=== PATIENT | female | born 1955 | race Caucasian/White ===

== ENCOUNTER 2016-09-01 16:02 | Emergency (ER) | payer BC ==
[2016-09-01 16:03] VITALS: BMI 32.8
[2016-09-01 16:54] VITALS: BP 151/81; PULSE 76; RESP 20; TEMP 98.6; O2SAT 99
--- NOTE | 2016-09-01 16:56 | ED PDOC ---
HPI: Female Pain Time Seen by Provider: 09/01/16 16:30 Chief Complaint (Nursing): Back Pain Chief Complaint (Provider): back pain History Per: Patient History/Exam Limitations: no limitations Current Symptoms Are (Timing): Still Present Additional Complaint(s): Awilda Lubin is a 61 year old female, with an extensive previous medical history including chronic back pain, who presents to the ED with complaints of lower back pain. Pt reports associated symptoms of tingling down both legs, frequency in urination, urine trickling, urgency in urination and dysuria. Pt denies any hematuria, fever, chills or incontinency. Pt reports to following with pain management who prescribed dilaudid daily and epidural every six month. Pt reports to taking her normal dose of dilaudid prior to arrival. PMD: Cuba Lua MD Abnormal Vaginal Bleeding: No Past Medical History Reviewed: Historical Data, Nursing Documentation, Vital Signs Vital Signs: Last Vital Signs Temp 98.6 F 09/01/16 16:23 Pulse 76 09/01/16 16:23 Resp 20 09/01/16 16:23 BP 151/81 H 09/01/16 16:23 Pulse Ox 99 09/01/16 16:23 - Medical History PMH: Anemia, Anxiety, Arthritis, Asthma, Back Problems, Bronchitis, COPD, Diabetes, Emphysema, Gastritis, Gall Bladder Disease, GERD, Hiatal Hernia, HTN, Hypercholesterolemia, Hyperlipidemia, Pneumonia, Sleep Apnea Denies: Alzheimer's Disease, Atrial Fibrillation, Bipolar Disorder, CAD, Cardia Arrhythmia, CHF, Crohn's Disease, Dementia (pt denies), Depression, Diverticulitis, Fractures, HIV, Hyperthyroidism, Hypothyroidism, Kidney Stones, Migraine, Mitral Valve Prolapse, Multiple Sclerosis, Osteoporosis, Pancreatitis , Paranoia, Parkinson's Disease, Peripheral Edema, Post Traumatic Stress Disorder, Pulmonary Embolism, Chronic Kidney Disease, Rheumatoid Arthritis, Schizophrenia, Seizures, Sickle Cell Disease, Sexually Transmitted Disease, TIA - Surgical History Surgical History: Cholecystectomy Denies: Appendectomy, CABG, Carotid Endarterectomy, Coronary Stent, Pacemaker , Tonsillectomy - Family History Family History: States: Unknown Family Hx - Immunization History Hx Tetanus Toxoid Vaccination: No Hx Influenza Vaccination: No Hx Pneumococcal Vaccination: No - Home Medications Home Medications: Ambulatory Orders Medication Instructions Recorded Insulin Detemir [Levemir] 34 units SC HS #0 vial 04/20/15 Acetaminophen/Butalbital/Caf 1 tab PO BID PRN 05/18/15 [Fioricet] Enalapril Maleate 20 mg PO BID 05/18/15 Zolpidem [Ambien] 10 mg PO HS 05/18/15 Esomeprazole Magnesium [Nexium] 40 mg PO DAILY 06/28/15 HYDROmorphone [Dilaudid] 4 mg PO BID PRN 07/26/15 Insulin Lispro [Humalog] 15 unit SC TID 07/26/15 Metoclopramide [Reglan] 10 mg PO TID PRN 07/26/15 Gabapentin [Neurontin] 100 mg PO PRN PRN 08/10/15 Pioglitazone HCl [Actos] 30 mg PO DAILY 08/10/15 Ondansetron ODT [Zofran ODT] 4 mg PO Q8 #10 odt 08/23/15 Nitrofurantoin Macrocrystals 100 mg PO BID #14 cap 02/21/16 [Macrobid] - Allergies Allergies/Adverse Reactions: Allergies Allergy/AdvReac Type Severity Reaction Status Date / Time codeine Allergy ITCHING Verified 02/21/16 09:17 narcotics Allergy ITCHING Uncoded 02/04/16 21:08 Review of Systems ROS Statement: Except As Marked, All Systems Reviewed And Found Negative Constitutional: Negative for: Fever, Chills Genitourinary Female: Positive for: Dysuria, Frequency. Negative for: Incontinence, Hematuria Musculoskeletal: Positive for: Back Pain Neurological: Positive for: Other (tingling down both legs) Physical Exam - Reviewed Nursing Documentation Reviewed: Yes Vital Signs Reviewed: Yes - Physical Exam Appears: Positive for: Well, Non-toxic, No Acute Distress Head Exam: Positive for: ATRAUMATIC, NORMAL INSPECTION, NORMOCEPHALIC Skin: Positive for: Normal Color, Warm, Dry Cardiovascular/Chest: Positive for: Regular Rate, Rhythm Respiratory: Positive for: CNT, Normal Breath Sounds Gastrointestinal/Abdominal: Positive for: Bowel Sounds, Soft, Tenderness (mild suprapubic tenderness) Extremity: Positive for: Normal ROM, Capillary Refill (< 2 seconds). Negative for: Calf Tenderness Neurologic/Psych: Positive for: Alert, Oriented - Laboratory Results Urine dip results: Negative for: Leukocyte Esterase, Blood, Nitrate, Ketones, Glucose, Bilirubin, Protein - ECG O2 Sat by Pulse Oximetry: 99 (RA) Pulse Ox Interpretation: Normal Medical Decision Making Medical Decision Making: Initial Impression: UTI Initial Plan: * urine dipstick * reevaluation Pt refused non-steroidal medications at this time. Pt with normal UDIP-pt again offered pain control with NSAID, but declined. pt opted to go home to take her dilauid PO Scribe Attestation: Documented by Matilde Belle, acting as a scribe for jayson. Provider Scribe Attestation: All medical record entries made by the Scribe were at my direction and personally dictated by me. I have reviewed the chart and agree that the record accurately reflects my personal performance of the history, physical exam, medical decision making, and the department course for this patient. I have also personally directed, reviewed, and agree with the discharge instructions and disposition Disposition - Clinical Impression Clinical Impression: Back disorder - Patient ED Disposition Is Patient to be Admitted: No Counseled Patient/Family Regarding: Need For Followup - Disposition Disposition: Routine/Home Disposition Time: 17:30 Condition: STABLE Instructions: Back Pain (ED)
== END 2016-09-01 18:42 | disposition home or self-care (01) ==
LOC: H.ER 16:02
DX: M54.5 Low back pain (principal)

== ENCOUNTER 2016-09-26 14:45 | Emergency (ER) | payer BC ==
[2016-09-26 14:46] VITALS: BMI 32.8
[2016-09-26 15:03] VITALS: BP 116/82; PULSE 100; RESP 16; TEMP 98.1; O2SAT 100
[2016-09-26] MEDS ORDERED: DiphenhydrAMINE 50 mg/ml Inj IVP STA (15:22)
[2016-09-26] MEDS ORDERED: Sodium Chloride 0.9% 500 ML IV STA (15:22)
--- NOTE | 2016-09-26 15:23 | ED PDOC ---
HPI: Abdomen Time Seen by Provider: 09/26/16 15:04 Chief Complaint (Nursing): Dizziness/Lightheaded Chief Complaint (Provider): Abdominal pain History Per: Patient History/Exam Limitations: no limitations Onset/Duration Of Symptoms: Days (3x) Current Symptoms Are (Timing): Still Present Severity: Moderate Location Of Pain/Discomfort: Periumbilical Associated Symptoms: Chills, Nausea, Vomiting, Back Pain (chronic), Urinary Symptoms (frequency). denies: Diarrhea Exacerbating Factors: Movement Additional Complaint(s): 61 year old female patient with a pertinent medical history of HTN, diabetes, and chronic back pain presents to the ED with complaints of abdominal pain that started 3x days ago right after she got an epidural for her back. She reports that she has gotten an epidural at least 6x times prior to this time because it is her pain management for her chronic back pain. She has associated symptoms of lightheadedness, dizziness, nausea, vomiting (4 episodes today, non bloody), frequency and urgency, headache, and chills. She denies having diarrhea, hematuria, and dysuria. Of note: accucheck is 370 upon arrival to ED. PMD: Brenton Dorado MD Pain management MD: Brenton Freeman MD Past Medical History Reviewed: Historical Data, Nursing Documentation, Vital Signs Vital Signs: Last Vital Signs Temp 98.1 F 09/26/16 15:00 Pulse 100 H 09/26/16 15:00 Resp 16 09/26/16 15:00 BP 116/82 09/26/16 15:00 Pulse Ox 100 09/26/16 18:38 - Medical History PMH: Anemia, Anxiety, Arthritis, Asthma, Back Problems, Bronchitis, COPD, Diabetes, Emphysema, Gastritis, Gall Bladder Disease, GERD, Hiatal Hernia, HTN, Hypercholesterolemia, Hyperlipidemia, Pneumonia, Sleep Apnea Denies: Alzheimer's Disease, Atrial Fibrillation, Bipolar Disorder, CAD, Cardia Arrhythmia, CHF, Crohn's Disease, Dementia (pt denies), Depression, Diverticulitis, Fractures, HIV, Hyperthyroidism, Hypothyroidism, Kidney Stones, Migraine, Mitral Valve Prolapse, Multiple Sclerosis, Osteoporosis, Pancreatitis , Paranoia, Parkinson's Disease, Peripheral Edema, Post Traumatic Stress Disorder, Pulmonary Embolism, Chronic Kidney Disease, Rheumatoid Arthritis, Schizophrenia, Seizures, Sickle Cell Disease, Sexually Transmitted Disease, TIA - Surgical History Surgical History: Cholecystectomy Denies: Appendectomy, CABG, Carotid Endarterectomy, Coronary Stent, Pacemaker , Tonsillectomy - Family History Family History: States: Diabetes (brother), Hypertension (brother) - Social History Alcohol: None Drugs: Denies - Immunization History Hx Tetanus Toxoid Vaccination: No Hx Influenza Vaccination: No Hx Pneumococcal Vaccination: No - Home Medications Home Medications: Ambulatory Orders Medication Instructions Recorded Insulin Detemir [Levemir] 34 units SC HS #0 vial 04/20/15 Acetaminophen/Butalbital/Caf 1 tab PO BID PRN 05/18/15 [Fioricet] Enalapril Maleate 20 mg PO BID 05/18/15 Zolpidem [Ambien] 10 mg PO HS 05/18/15 Esomeprazole Magnesium [Nexium] 40 mg PO DAILY 06/28/15 HYDROmorphone [Dilaudid] 4 mg PO BID PRN 07/26/15 Insulin Lispro [Humalog] 15 unit SC TID 07/26/15 Metoclopramide [Reglan] 10 mg PO TID PRN 07/26/15 Gabapentin [Neurontin] 100 mg PO PRN PRN 08/10/15 Pioglitazone HCl [Actos] 30 mg PO DAILY 08/10/15 Ondansetron ODT [Zofran ODT] 4 mg PO Q8 #10 odt 08/23/15 Dicyclomine [Bentyl] 20 mg PO BID PRN #30 tab 09/26/16 Ondansetron ODT [Zofran ODT] 1 odt PO Q6 PRN #30 odt 09/26/16 - Allergies Allergies/Adverse Reactions: Allergies Allergy/AdvReac Type Severity Reaction Status Date / Time codeine Allergy ITCHING Verified 09/26/16 15:00 Review of Systems ROS Statement: Except As Marked, All Systems Reviewed And Found Negative Constitutional: Positive for: Chills Cardiovascular: Positive for: Light Headedness Gastrointestinal: Positive for: Nausea, Vomiting, Abdominal Pain. Negative for : Diarrhea Genitourinary Female: Positive for: Frequency. Negative for: Dysuria, Hematuria Musculoskeletal: Positive for: Back Pain (chronic) Neurological: Positive for: Headache, Dizziness Physical Exam - Reviewed Nursing Documentation Reviewed: Yes Vital Signs Reviewed: Yes - Physical Exam Appears: Positive for: Well, Non-toxic (patient has central obesity), In Acute Distress (moderate painful distress) Head Exam: Positive for: ATRAUMATIC, NORMOCEPHALIC Skin: Positive for: Normal Color, Warm, Dry Eye Exam: Positive for: Normal appearance ENT: Positive for: Normal ENT Inspection, Other (moist mucous membranes) Cardiovascular/Chest: Positive for: Regular Rate, Rhythm, Chest Non Tender Respiratory: Positive for: Normal Breath Sounds. Negative for: Respiratory Distress Gastrointestinal/Abdominal: Positive for: Soft, Tenderness (right upper quadrant tenderness to palpation), Other (abdomen is protuberant). Negative for : Mass, Distended, Guarding, Rebound Back: Negative for: Other (no erythema or henley on midline lower back, no swelling) Neurologic/Psych: Positive for: Alert, Oriented (3x) - Laboratory Results Result Diagrams: 09/26/16 15:31 09/26/16 15:31 - ECG O2 Sat by Pulse Oximetry: 100 (RA) Pulse Ox Interpretation: Normal Medical Decision Making Medical Decision Makin:04 Initial impression: 61 year old female with abdominal pain. Initial plan: * EKG * ABG shock panel * CMP * lipase * LDH * udip * CBC * PTT * prothrombin time * benadryl 25mg IBP * IV NS 500ml IV 500mls/hr * morphine 4mg IVP * phenergan 25mg IV * protonix 40mg IVP * blood culture * urine culture * urinalysis * reevaluation 15:50 ABG demonstrates a lactate level of 2.7, glucose level of 502, pH of 7.43. 16:45 Upon reevaluation, patient states that she does not feel zany better (after morphine). Her pain level is still severe. IV Dilaudid is ordered. Discussed case with patient's pain management physician Brenton Freeman MD and notified him that his patient is receiving medication in the ED for abdominal pain. He states that she may not see the effects of the epidural for up to a week after administration. Accession No. : [id number] Patient Name / ID : COBY [id number] / [id number] Exam Date : 09/26/2016 17:39:34 ( Approved ) Study Comment : Sex / Age : F / 61Y Creator : Isaura Gonzalez MD Dictator : Isaura Gonzalez MD Control Room Agent : Cyber Defense Analyst : Isaura Gonzalez MD Approver2 : Report Date : 09/26/2016 18:29:18 My Comment : PROCEDURE: CT Abdomen and Pelvis without Oral or IV contrast. HISTORY: abd pain COMPARISON: CT abdomen and pelvis with contrast performed 02/21/16 TECHNIQUE: Contiguous axial images of the abdomen and pelvis. No oral or IV contrast administered. Coronal and Sagittal reformats generated and reviewed. Radiation dose: Total exam DLP = 1023.73 mGy-cm. This CT exam was performed using one or more of the following dose reduction techniques: Automated exposure control, adjustment of the mA and/or kV according to patient size, and/or use of iterative reconstruction technique. FINDINGS: There is limited evaluation of the solid organs without the administration of IV contrast. LOWER THORAX: No visible consolidation, pleural effusion, or pneumothorax. Small hiatal hernia. Fluid within the distal esophagus compatible with gastroesophageal reflux. LIVER: Hepatomegaly. Hypoattenuation of the liver compatible with hepatic steatosis. GALLBLADDER AND BILE DUCTS: Cholecystectomy clips. Pneumobilia. PANCREAS: Unremarkable unenhanced appearance. SPLEEN: Unremarkable unenhanced appearance. ADRENALS: Unremarkable unenhanced appearance. KIDNEYS AND URETERS: No hydronephrosis or obstructing renal calculus. BLADDER: The urinary bladder appears unremarkable. REPRODUCTIVE: Uterus is present. Calcifications likely related to degenerating fibroid within the right uterus. APPENDIX: The appendix is not identified. No secondary signs of acute appendicitis. BOWEL: The stomach is nondistended. Lack of oral contrast limits evaluation for bowel pathology. The bowel loops appear within normal limits of caliber without evidence of intestinal obstruction. PERITONEUM: No significant free fluid. No definite free air. LYMPH NODES: No bulky lymphadenopathy identified. VASCULATURE: No aortic aneurysm. BONES: Degenerative changes. OTHER FINDINGS: None. IMPRESSION: Hepatomegaly. Hepatic steatosis. Cholecystectomy. Pneumobilia. Evidence of degenerating uterine fibroid. On reeval pt reporting itching and nausea, but pain resolved with dilaudid. Repeat ABG demonstrated improving glucose and hydration status. LUCIA pt findings and need for continued oral hydration. LUCIA Dorado PMAmi who will follow up in office. Scribe Attestation: Documented by Margarita Simental, acting as a scribe for Adrianne Morse MD. Provider Scribe Attestation: All medical record entries made by the Scribe were at my direction and personally dictated by me. I have reviewed the chart and agree that the record accurately reflects my personal performance of the history, physical exam, medical decision making, and the department course for this patient. I have also personally directed, reviewed, and agree with the discharge instructions and disposition. Disposition - Clinical Impression Clinical Impression: Abdominal pain - Disposition Referrals: Brenton Dorado MD [Medical Doctor] - 09/27/16 Disposition: Routine/Home Disposition Time: 19:30 Condition: IMPROVED Prescriptions: Dicyclomine [Bentyl] 20 mg PO BID PRN #30 tab PRN Reason: abdominal pain Ondansetron ODT [Zofran ODT] 1 odt PO Q6 PRN #30 odt PRN Reason: Nausea/Vomiting Instructions: Acute Abdominal Pain (GEN)
[2016-09-26 15:50] LABS: ABG ALLEN TEST YES; ARTERIAL BLOOD GAS HCO3 22.4 mmol/L (21-28); ARTERIAL BLOOD GAS O2 SAT 99.9 % (95-98); ARTERIAL BLOOD GAS PCO2 30 mm/Hg (35-45); ARTERIAL BLOOD GAS PH 7.43 (7.35-7.45); ARTERIAL BLOOD GAS PO2 103 mm/Hg (80-100); ARTERIAL BLOOD GAS TCO2 20.8 mmol/L (22-28)
[2016-09-26] MEDS ORDERED: Sodium Chloride 0.9% 1,000 ML IV STA (15:50)
[2016-09-26] MEDS ORDERED: Insulin Regular 100 units/ml SC STA ×2 (15:51→17:54)
[2016-09-26] MEDS ORDERED: DiphenhydrAMINE 50 mg/ml Inj ONE ×2 (15:56→18:38)
[2016-09-26 16:45] LABS: BASO # 0.1 K/uL (0.0-0.2); BASO % 0.8 % (0.0-2.0); EOS % 0.2 % (0.0-4.0); HEMOGLOBIN 15.9 g/dL (12.0-16.0); LYMPH # 2.7 K/uL (1.0-4.3); MEAN CELL VOLUME 80.1 fl (81.0-99.0); MEAN CORPUSCULAR HEMOGLOBIN 26.4 pg (27.0-31.0); MEAN CORPUSCULAR HGB CONC 32.9 g/dL (33.0-37.0); MEAN PLATELET VOLUME 9.3 fl (7.2-11.7); MONO % 6.6 % (0.0-10.0); NEUT # 11.8 K/uL (1.8-7.0); NEUT % 75.4 % (50.0-75.0); NRBC % 0.1 % (0.0-0.0); RBC 6.03 Mil/uL (3.80-5.20); WHITE BLOOD COUNT 15.6 K/uL (4.8-10.8)
[2016-09-26 16:57] LABS: ALBUMIN 4.4 g/dL (3.5-5.0); BLOOD UREA NITROGEN 36 mg/dl (7-17); CALCIUM 10.1 mg/dL (8.4-10.2); GFR AFRICAN-AMERICAN > 60; GFR NON-AFRICAN AMERICAN > 60
[2016-09-26 16:58] LABS: ALB/GLOB RATIO 1.2 (1.0-2.1); ALT/SGPT 35 U/L (9-52); AST/SGOT 18 U/L (14-36); LIPASE 111 U/L (23-300)
[2016-09-26 17:00] LABS: INR 1.1 (0.92-1.08); PARTIAL THROMBOPLASTIN TIME 25.9 SECONDS (23.3-32.5); PROTHROMBIN TIME 11.4 SECONDS (9.6-11.2)
[2016-09-26 18:11] LABS: SQUAMOUS EPITHIAL 21 /hpf (0-5); URINE BACTERIA FEW (<OCC); URINE BILIRUBIN NEGATIVE (NEGATIVE); URINE BLOOD NEGATIVE (NEGATIVE); URINE CLARITY SLIGHTY-CLOUDY (Clear); URINE COLOR YELLOW (YELLOW); URINE GLUCOSE (UA) >=500 mg/dL (Normal); URINE LEUKOCYTE ESTERASE NEG Leu/uL (Negative); URINE NITRATE NEGATIVE (NEGATIVE); URINE PROTEIN 30 mg/dL (NEGATIVE); URINE UROBILINOGEN 0.2-1.0 mg/dL (0.2-1.0)
--- NOTE | 2016-09-26 18:31 | CT ---
PROCEDURE: CT Abdomen and Pelvis without Oral or IV contrast. HISTORY: abd pain COMPARISON: CT abdomen and pelvis with contrast performed 02/21/16 TECHNIQUE: Contiguous axial images of the abdomen and pelvis. No oral or IV contrast administered. Coronal and Sagittal reformats generated and reviewed. Radiation dose: Total exam DLP = 1023.73 mGy-cm. This CT exam was performed using one or more of the following dose reduction techniques: Automated exposure control, adjustment of the mA and/or kV according to patient size, and/or use of iterative reconstruction technique. FINDINGS: There is limited evaluation of the solid organs without the administration of IV contrast. LOWER THORAX: No visible consolidation, pleural effusion, or pneumothorax. Small hiatal hernia. Fluid within the distal esophagus compatible with gastroesophageal reflux. LIVER: Hepatomegaly. Hypoattenuation of the liver compatible with hepatic steatosis. GALLBLADDER AND BILE DUCTS: Cholecystectomy clips. Pneumobilia. PANCREAS: Unremarkable unenhanced appearance. SPLEEN: Unremarkable unenhanced appearance. ADRENALS: Unremarkable unenhanced appearance. KIDNEYS AND URETERS: No hydronephrosis or obstructing renal calculus. BLADDER: The urinary bladder appears unremarkable. REPRODUCTIVE: Uterus is present. Calcifications likely related to degenerating fibroid within the right uterus. APPENDIX: The appendix is not identified. No secondary signs of acute appendicitis. BOWEL: The stomach is nondistended. Lack of oral contrast limits evaluation for bowel pathology. The bowel loops appear within normal limits of caliber without evidence of intestinal obstruction. PERITONEUM: No significant free fluid. No definite free air. LYMPH NODES: No bulky lymphadenopathy identified. VASCULATURE: No aortic aneurysm. BONES: Degenerative changes. OTHER FINDINGS: None. IMPRESSION: Hepatomegaly. Hepatic steatosis. Cholecystectomy. Pneumobilia. Evidence of degenerating uterine fibroid.
[2016-09-26] MEDS ORDERED: DiphenhydrAMINE 50 mg/ml Inj IM STA (18:41)
[2016-09-26 19:10] LABS: ABG ALLEN TEST YES; ARTERIAL BLOOD GAS HCO3 23.7 mmol/L (21-28); ARTERIAL BLOOD GAS O2 SAT 98.2 % (95-98); ARTERIAL BLOOD GAS PCO2 41 mm/Hg (35-45); ARTERIAL BLOOD GAS PH 7.37 (7.35-7.45); ARTERIAL BLOOD GAS PO2 81 mm/Hg (80-100)
--- NOTE | 2016-09-28 18:19 | CARD ---
APPROVED REPORT EKG Measurement Heart [id number] <Conclusion> Normal sinus rhythm Left axis deviation Inferior infarct, age undetermined Abnormal ECG
== END 2016-09-26 19:46 | disposition home or self-care (01) ==
LOC: H.ER 14:45
DX: R10.9 Unspecified abdominal pain (principal); I10 Essential (primary) hypertension; E11.9 Type 2 diabetes mellitus without complications; K21.9 Gastro-esophageal reflux disease without esophagitis; E78.00 Pure hypercholesterolemia, unspecified
CPT/HCPCS: 36600; 74176; 80053; 81003; 82803; 82948; 83615; 83690; 85025; 85610; 85730; 87086; 93005; 96372; 96374; 96375; 99283; C9113; J1170; J1200; J2270; J2405; J2550; J7040

== ENCOUNTER 2016-12-25 14:31 | Emergency (ER) | payer BC ==
[2016-12-25 14:31] VITALS: BMI 32.8
[2016-12-25 14:42] VITALS: RESP 18; O2SAT 99
[2016-12-25] MEDS ORDERED: Sodium Chloride 0.9% 1,000 ML IV STA (15:11)
[2016-12-25 15:47] LABS: BASO # 0.1 K/uL (0.0-0.2); BASO % 0.7 % (0.0-2.0); EOS # 0.1 K/uL (0.0-0.7); EOS % 1.4 % (0.0-4.0); HEMOGLOBIN 14.3 g/dL (12.0-16.0); LYMPH # 2.5 K/uL (1.0-4.3); LYMPH % 27.2 % (20.0-40.0); MEAN CELL VOLUME 80.9 fl (81.0-99.0); MEAN CORPUSCULAR HEMOGLOBIN 27.4 pg (27.0-31.0); MEAN CORPUSCULAR HGB CONC 33.9 g/dL (33.0-37.0); MEAN PLATELET VOLUME 9.5 fl (7.2-11.7); MONO # 0.6 K/uL (0.0-0.8); MONO % 6.5 % (0.0-10.0); NEUT # 5.9 K/uL (1.8-7.0); NEUT % 64.2 % (50.0-75.0); NRBC % 0.1 % (0.0-0.0); RBC 5.23 Mil/uL (3.80-5.20); RED CELL DISTRIBUTION WIDTH 13.5 % (11.5-14.5); WHITE BLOOD COUNT 9.1 K/uL (4.8-10.8)
[2016-12-25 16:06] LABS: ALB/GLOB RATIO 1.3 (1.0-2.1); ALBUMIN 4.4 g/dL (3.5-5.0); ALT/SGPT 41 U/L (9-52); AST/SGOT 24 U/L (14-36); BLOOD UREA NITROGEN 16 mg/dl (7-17); CALCIUM 9.9 mg/dL (8.4-10.2); GFR AFRICAN-AMERICAN > 60; GFR NON-AFRICAN AMERICAN > 60; LIPASE 314 U/L (23-300)
[2016-12-25] MEDS ORDERED: HYDROmorphone 0.5 mg/0.5 ml ISec IVP STA (16:45)
--- NOTE | 2016-12-25 16:45 | CT ---
PROCEDURE: CT Abdomen and Pelvis without intravenous contrast HISTORY: R flank pain COMPARISON: 09/26/2026 TECHNIQUE: Without contrast.. Contrast Dose: 0 Radiation dose: Total exam DLP = 1022.42 mGy-cm. This CT exam was performed using one or more of the following dose reduction techniques: Automated exposure control, adjustment of the mA and/or kV according to patient size, and/or use of iterative reconstruction technique. FINDINGS: LOWER THORAX: Unremarkable. LIVER: Enlarged liver. The liver measures approximately 20.3 cm craniocaudal. Diffusely diminished attenuation consistent with fatty infiltration. No mass. No biliary ductal dilatation. GALLBLADDER AND BILE DUCTS: UnremarkableStatus post cholecystectomy. There is gas seen within the common bile duct and the proximal intrahepatic bile ducts of the left hepatic lobe. This is likely the result of prior cholecystectomy and is unchanged from the prior CT examination. . PANCREAS: Unremarkable. No gross lesion or ductal dilatation. SPLEEN: Unremarkable. ADRENALS: Unremarkable. No mass. KIDNEYS AND URETERS: Unremarkable. No hydronephrosis. No solid mass. No calculus. VASCULATURE: Unremarkable. No aortic aneurysm. BOWEL: Sigmoid diverticulosis. No evidence of diverticulitis. No other abnormal bowel loops. No bowel obstruction. APPENDIX: Not definitely identified. No secondary findings to suggest acute appendicitis. PERITONEUM: Unremarkable. No free fluid. No free air. LYMPH NODES: Unremarkable. No enlarged lymph nodes. BLADDER: Unremarkable. REPRODUCTIVE: Coarse uterine calcifications consistent with calcified degenerated fibroids. BONES: No acute fracture. OTHER FINDINGS: None. IMPRESSION: No evidence of urinary calculus. No evidence of urinary tract obstruction. Hepatomegaly with diffuse fatty infiltration of the liver. Status post cholecystectomy with mild intra and extrahepatic biliary gas.
--- NOTE | 2016-12-25 17:08 | ED PDOC ---
HPI: Back Time Seen by Provider: 12/25/16 14:51 Chief Complaint (Nursing): Back Pain Chief Complaint (Provider): right back pain History Per: Patient History/Exam Limitations: no limitations Current Symptoms Are (Timing): Still Present Quality Of Discomfort: Sharp Severity: Moderate Previous Symptoms: Back Pain Associated Symptoms: None Exacerbating Factor(s): Turning, Movement Additional Complaint(s): 61yo female c/o R flank and back pain ongoing for about 3 days. Denies fever, dysruia or hematuria. Does admit to some urinary frequency. Denies vomiting, diarrhea or weakness. Took PO Dilaudid at home (Rx by pain management for herniated disc/ chronic back pain), she states this pain is different from normal back pain. States does not need dilaudid everyday, and she has remaining pills at home. [place] PMD last dilaudid 4mg PO filled 11/10 40pills Past Medical History Reviewed: Historical Data, Nursing Documentation, Vital Signs Vital Signs: Last Vital Signs Temp 99.1 F 12/25/16 14:41 Pulse 89 12/25/16 14:41 Resp 18 12/25/16 14:41 BP 159/81 H 12/25/16 14:41 Pulse Ox 99 12/25/16 14:41 - Medical History PMH: Anemia, Anxiety, Arthritis, Asthma, Back Problems, Bronchitis, COPD, Diabetes, Emphysema, Gastritis, Gall Bladder Disease, GERD, Hiatal Hernia, HTN, Hypercholesterolemia, Hyperlipidemia, Pneumonia, Sleep Apnea Denies: Alzheimer's Disease, Atrial Fibrillation, Bipolar Disorder, CAD, Cardia Arrhythmia, CHF, Crohn's Disease, Dementia (pt denies), Depression, Diverticulitis, Fractures, HIV, Hyperthyroidism, Hypothyroidism, Kidney Stones, Migraine, Mitral Valve Prolapse, Multiple Sclerosis, Osteoporosis, Pancreatitis , Paranoia, Parkinson's Disease, Peripheral Edema, Post Traumatic Stress Disorder, Pulmonary Embolism, Chronic Kidney Disease, Rheumatoid Arthritis, Schizophrenia, Seizures, Sickle Cell Disease, Sexually Transmitted Disease, TIA - Surgical History Surgical History: Cholecystectomy Denies: Appendectomy, CABG, Carotid Endarterectomy, Coronary Stent, Pacemaker , Tonsillectomy - Family History Family History: States: Unknown Family Hx, Diabetes (brother), Hypertension ( brother) - Social History Current smoker - smoking cessation education provided: No Alcohol: None - Immunization History Hx Tetanus Toxoid Vaccination: No Hx Influenza Vaccination: No Hx Pneumococcal Vaccination: No - Home Medications Home Medications: Ambulatory Orders Medication Instructions Recorded Insulin Detemir [Levemir] 34 units SC HS #0 vial 04/20/15 Acetaminophen/Butalbital/Caf 1 tab PO BID PRN 05/18/15 [Fioricet] Enalapril Maleate 20 mg PO BID 05/18/15 Zolpidem [Ambien] 10 mg PO HS 05/18/15 Esomeprazole Magnesium [Nexium] 40 mg PO DAILY 06/28/15 HYDROmorphone [Dilaudid] 4 mg PO BID PRN 07/26/15 Insulin Lispro [Humalog] 15 unit SC TID 07/26/15 Metoclopramide [Reglan] 10 mg PO TID PRN 07/26/15 Gabapentin [Neurontin] 100 mg PO PRN PRN 08/10/15 Pioglitazone HCl [Actos] 30 mg PO DAILY 08/10/15 Ondansetron ODT [Zofran ODT] 4 mg PO Q8 #10 odt 08/23/15 Dicyclomine [Bentyl] 20 mg PO BID PRN #30 tab 09/26/16 Ondansetron ODT [Zofran ODT] 1 odt PO Q6 PRN #30 odt 09/26/16 - Allergies Allergies/Adverse Reactions: Allergies Allergy/AdvReac Type Severity Reaction Status Date / Time codeine Allergy ITCHING Verified 09/26/16 15:00 Review of Systems ROS Statement: Except As Marked, All Systems Reviewed And Found Negative Constitutional: Negative for: Fever, Chills Gastrointestinal: Positive for: Abdominal Pain. Negative for: Nausea, Vomiting Genitourinary Female: Positive for: Frequency Musculoskeletal: Positive for: Back Pain Skin: Negative for: Rash, Lesions, Jaundice Neurological: Positive for: Dizziness. Negative for: Weakness, Numbness, Headache Psych: Negative for: Anxiety, Depression Physical Exam - Reviewed Nursing Documentation Reviewed: Yes Vital Signs Reviewed: Yes - Physical Exam Appears: Positive for: Well, Non-toxic, No Acute Distress Head Exam: Positive for: ATRAUMATIC, NORMAL INSPECTION, NORMOCEPHALIC Skin: Positive for: Normal Color, Warm, DRY Eye Exam: Positive for: EOMI, Normal appearance, PERRL ENT: Positive for: Normal ENT Inspection Neck: Positive for: Normal, Painless ROM Cardiovascular/Chest: Positive for: Regular Rate, Rhythm Respiratory: Positive for: CNT, Normal Breath Sounds Gastrointestinal/Abdominal: Positive for: Bowel Sounds, Soft, Tenderness (R sided) Back: Positive for: R CVA Tenderness, Decreased ROM, Muscle Spasm Extremity: Positive for: Normal ROM Neurologic/Psych: Positive for: Alert, Oriented - Laboratory Results Result Diagrams: 12/25/16 15:30 12/25/16 15:30 - ECG O2 Sat by Pulse Oximetry: 99 Medical Decision Making Medical Decision Making: workup initiated for back pain vs pyelonephritis vs renal colic vs other labs reviewed- WBC normal, 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 : [id number] Patient Name / ID : COBY DUBOIS / [id number] Exam Date : 12/25/2016 16:02:45 ( Approved ) Study Comment : Sex / Age : F / 61Y Creator : Darin De La Rosa MD Dictator : Darin De La Rosa MD Service Agent : Infant Childcare Provider : Darin De La Rosa MD Approver2 : Report Date : 12/25/2016 16:44:11 My Comment : This report is currently processing and HAS NOT BEEN OFFICIALLY SIGNED BY THE PHYSICIAN - ESTIMATED TIME OF APPROVAL IS 12/25/2016 16:49. PROCEDURE: CT Abdomen and Pelvis without intravenous contrast HISTORY: R flank pain COMPARISON: 09/26/2026 TECHNIQUE: Without contrast.. Contrast Dose: 0 Radiation dose: Total exam DLP = 1022.42 mGy-cm. This CT exam was performed using one or more of the following dose reduction techniques: Automated exposure control, adjustment of the mA and/or kV according to patient size, and/or use of iterative reconstruction technique. FINDINGS: LOWER THORAX: Unremarkable. LIVER: Enlarged liver. The liver measures approximately 20.3 cm craniocaudal. Diffusely diminished attenuation consistent with fatty infiltration. No mass. No biliary ductal dilatation. GALLBLADDER AND BILE DUCTS: UnremarkableStatus post cholecystectomy. There is gas seen within the common bile duct and the proximal intrahepatic bile ducts of the left hepatic lobe. This is likely the result of prior cholecystectomy and is unchanged from the prior CT examination. . PANCREAS: Unremarkable. No gross lesion or ductal dilatation. SPLEEN: Unremarkable. ADRENALS: Unremarkable. No mass. KIDNEYS AND URETERS: Unremarkable. No hydronephrosis. No solid mass. No calculus. VASCULATURE: Unremarkable. No aortic aneurysm. BOWEL: Sigmoid diverticulosis. No evidence of diverticulitis. No other abnormal bowel loops. No bowel obstruction. APPENDIX: Not definitely identified. No secondary findings to suggest acute appendicitis. PERITONEUM: Unremarkable. No free fluid. No free air. LYMPH NODES: Unremarkable. No enlarged lymph nodes. BLADDER: Unremarkable. REPRODUCTIVE: Coarse uterine calcifications consistent with calcified degenerated fibroids. BONES: No acute fracture. OTHER FINDINGS: None. IMPRESSION: No evidence of urinary calculus. No evidence of urinary tract obstruction. Hepatomegaly with diffuse fatty infiltration of the liver. Status post cholecystectomy with mild intra and extrahepatic biliary gas. Patient given toradol, IVF for pain but no improvement. Dilaudid 1mg ordered. Endorsed Dr Tejada 5pm Disposition - Clinical Impression Clinical Impression: Acute back pain - Patient ED Disposition Is Patient to be Admitted: Transfer of Care Counseled Patient/Family Regarding: Studies Performed, Diagnosis, Need For Followup - Disposition Disposition: Transfer of Care Disposition Time: 17:10 Condition: STABLE Patient Signed Over To: Jad Tejada Handoff Comments: pending re-eval, hopeful improvement and dispo
--- NOTE | 2016-12-25 17:16 | ED PDOC ---
- Laboratory Results Result Diagrams: 12/25/16 15:30 12/25/16 15:30 Interpretation Of Abn Labs: 223 glucose Urine dip results: Negative for: Leukocyte Esterase, Nitrate - ECG O2 Sat by Pulse Oximetry: 99 Pulse Ox Interpretation: Normal - Progress ED Course And Treament: 1844: Stable. Back pain. Fu with pcp. Lipase 314 borderline and not 3x normal. Pt. with no abd pain. Fu with pcp. Ambulated with no issues. Medical Decision Making Medical Decision Makin:00 Pt signed out to me by Dr. Josee VERA DO. Pending urine to r/o pyelonephritis. Disposition - Clinical Impression Clinical Impression: Acute back pain, Hyperglycemia - POA Present On Arrival: Poor Glycemic Control - Disposition Referrals: [facility] [Outside] - 12/26/16 Disposition: Routine/Home Disposition Time: 18:46 Condition: STABLE Additional Instructions: Return if not better in 3 days. Instructions: Back Pain (ED)
[2016-12-25 17:39] LABS: SQUAMOUS EPITHIAL 7 /hpf (0-5); URINE BACTERIA OCC (<OCC); URINE BILIRUBIN NEGATIVE (NEGATIVE); URINE BLOOD NEGATIVE (NEGATIVE); URINE CLARITY SLIGHTY-CLOUDY (Clear); URINE COLOR YELLOW (YELLOW); URINE GLUCOSE (UA) NEG (Normal); URINE LEUKOCYTE ESTERASE NEG Leu/uL (Negative); URINE NITRATE NEGATIVE (NEGATIVE); URINE PROTEIN NEGATIVE (NEGATIVE); URINE UROBILINOGEN 0.2-1.0 mg/dL (0.2-1.0)
[2016-12-26 09:56] VITALS: BP 133/86; PULSE 82; TEMP 98
== END 2016-12-25 18:46 | disposition home or self-care (01) ==
LOC: H.ER 14:31
DX: M54.9 Dorsalgia, unspecified (principal); E11.65 Type 2 diabetes mellitus with hyperglycemia; E11.22 Type 2 diabetes mellitus with diabetic chronic kidney disease; E03.9 Hypothyroidism, unspecified; E05.90 Thyrotoxicosis, unspecified without thyrotoxic crisis or storm; E78.00 Pure hypercholesterolemia, unspecified; F20.9 Schizophrenia, unspecified; F32.9 Major depressive disorder, single episode, unspecified; F43.10 Post-traumatic stress disorder, unspecified; G20 Parkinson's disease; G35 Multiple sclerosis; I12.9 Hypertensive chronic kidney disease with stage 1 through stage 4 chronic kidney disease, or unspecified chronic kidney disease; I34.1 Nonrheumatic mitral (valve) prolapse; J44.9 Chronic obstructive pulmonary disease, unspecified; K21.9 Gastro-esophageal reflux disease without esophagitis; K76.0 Fatty (change of) liver, not elsewhere classified; K85.90 Acute pancreatitis without necrosis or infection, unspecified; M06.9 Rheumatoid arthritis, unspecified; M81.0 Age-related osteoporosis without current pathological fracture; Z79.4 Long term (current) use of insulin; Z86.711 Personal history of pulmonary embolism; Z86.73 Personal history of transient ischemic attack (TIA), and cerebral infarction without residual deficits; Z90.49 Acquired absence of other specified parts of digestive tract
CPT/HCPCS: 74176; 80053; 81003; 83690; 85025; 96361; 96374; 96375; 99282; J1170; J1885; J7040

== ENCOUNTER 2017-02-19 10:23 | Emergency (ER) | payer BC ==
[2017-02-19 10:23] VITALS: BMI 32.8
[2017-02-19 10:44] VITALS: BP 146/81; PULSE 88; RESP 18; TEMP 98; O2SAT 99
[2017-02-19] MEDS ORDERED: DiphenhydrAMINE 50 mg/ml Inj IM STA (11:25)
[2017-02-19] MEDS ORDERED: HYDROmorphone 0.5 mg/0.5 ml ISec IM STA (11:25)
--- NOTE | 2017-02-19 11:33 | ED PDOC ---
HPI: Back Time Seen by Provider: 02/19/17 11:08 Chief Complaint (Nursing): Back Pain Chief Complaint (Provider): Lower back pain History Per: Patient History/Exam Limitations: no limitations Onset/Duration Of Symptoms: Days (4) Current Symptoms Are (Timing): Still Present Quality Of Discomfort: "Pain" Severity: Moderate Exacerbating Factor(s): Movement (Ambulation) Additional History Per: Patient Additional Complaint(s): 61 y/o female, Hx of Hypertension and diabetes, c/o pain to the lower back for 4 days. Patient notes having a mechanical fall 4 days prior after falling out of her bed. Pain radiates to the left lower leg and is worse with ambulation. Denies dizziness, LOC, or head injury. No weakness, numbness, or incontinence of bladder or bowel. Patient is taking Dilaudid and Benadryl at home for pain. Patient notes seeing her PMD Saturday before the fall for pain management. No palpitations, dizziness. Was an accidental fall. Past Medical History Reviewed: Historical Data, Nursing Documentation, Vital Signs Vital Signs: Last Vital Signs Temp 98.0 F 02/19/17 10:40 Pulse 88 02/19/17 10:40 Resp 18 02/19/17 10:40 BP 146/81 02/19/17 10:40 Pulse Ox 99 02/19/17 10:40 - Medical History PMH: Anemia, Anxiety, Arthritis, Asthma, Back Problems, Bronchitis, COPD, Diabetes, Emphysema, Gastritis, Gall Bladder Disease, GERD, Graves' Disease, Hiatal Hernia, HTN, Hypercholesterolemia, Hyperlipidemia, Pneumonia, Sleep Apnea Denies: Alzheimer's Disease, Atrial Fibrillation, Bipolar Disorder, CAD, Cardia Arrhythmia, CHF, Crohn's Disease, Dementia (pt denies), Depression, Diverticulitis, Fractures, HIV, Hyperthyroidism, Hypothyroidism, Kidney Stones, Migraine, Mitral Valve Prolapse, Multiple Sclerosis, Osteoporosis, Pancreatitis , Paranoia, Parkinson's Disease, Peripheral Edema, Post Traumatic Stress Disorder, Pulmonary Embolism, Chronic Kidney Disease, Rheumatoid Arthritis, Schizophrenia, Seizures, Sickle Cell Disease, Sexually Transmitted Disease, TIA - Surgical History Surgical History: Cholecystectomy Denies: Appendectomy, CABG, Carotid Endarterectomy, Coronary Stent, Pacemaker , Tonsillectomy - Family History Family History: States: Diabetes (brother), Hypertension (brother) - Social History Current smoker - smoking cessation education provided: No Alcohol: None Drugs: Denies - Immunization History Hx Tetanus Toxoid Vaccination: No Hx Influenza Vaccination: No Hx Pneumococcal Vaccination: No - Home Medications Home Medications: Ambulatory Orders Medication Instructions Recorded Insulin Detemir [Levemir] 34 units SC HS #0 vial 04/20/15 Acetaminophen/Butalbital/Caf 1 tab PO BID PRN 05/18/15 [Fioricet] Enalapril Maleate 20 mg PO BID 05/18/15 Zolpidem [Ambien] 10 mg PO HS 05/18/15 Esomeprazole Magnesium [Nexium] 40 mg PO DAILY 06/28/15 HYDROmorphone [Dilaudid] 4 mg PO BID PRN 07/26/15 Insulin Lispro [Humalog] 15 unit SC TID 07/26/15 Metoclopramide [Reglan] 10 mg PO TID PRN 07/26/15 Gabapentin [Neurontin] 100 mg PO PRN PRN 08/10/15 Pioglitazone HCl [Actos] 30 mg PO DAILY 08/10/15 Ondansetron ODT [Zofran ODT] 4 mg PO Q8 #10 odt 08/23/15 Dicyclomine [Bentyl] 20 mg PO BID PRN #30 tab 09/26/16 Ondansetron ODT [Zofran ODT] 1 odt PO Q6 PRN #30 odt 09/26/16 - Allergies Allergies/Adverse Reactions: Allergies Allergy/AdvReac Type Severity Reaction Status Date / Time codeine Allergy ITCHING Verified 09/26/16 15:00 hydromorphone [From Dilaudid] Allergy ITCHING Verified 02/19/17 10:40 Review of Systems ROS Statement: Except As Marked, All Systems Reviewed And Found Negative Constitutional: Negative for: Other (Head injury) Genitourinary Female: Negative for: Incontinence (Bladder or bowel) Musculoskeletal: Positive for: Back Pain (Lower), Leg Pain (Left leg, radiation) Neurological: Negative for: Weakness, Numbness, Dizziness, Other (LOC) Physical Exam - Reviewed Nursing Documentation Reviewed: Yes Vital Signs Reviewed: Yes - Physical Exam Appears: Positive for: Non-toxic, No Acute Distress Head Exam: Positive for: ATRAUMATIC, NORMAL INSPECTION, NORMOCEPHALIC Skin: Positive for: Normal Color, Warm, DRY Eye Exam: Positive for: Normal appearance Neck: Positive for: Normal, Painless ROM, Supple Cardiovascular/Chest: Positive for: Regular Rate, Rhythm Respiratory: Positive for: Normal Breath Sounds. Negative for: Rales, Rhonchi, Wheezing Pulses-Dorsalis Pedis (L): 2+ Pulses-Dorsalis Pedis (R): 2+ Back: Positive for: Other (Straight leg raise at 30 degree pos, left leg. Right normal; left lower back mild tender.). Negative for: L CVA Tenderness, R CVA Tenderness Extremity: Positive for: Normal ROM (x4. ROM of left leg causes pain), Tenderness (Left hip tenderness.). Negative for: Pedal Edema Neurologic/Psych: Positive for: Alert, Oriented - ECG O2 Sat by Pulse Oximetry: 99 (RA) Pulse Ox Interpretation: Normal - Radiology X-Ray: Read By Radiologist X-Ray Interpretation: No Acute Disease - Progress ED Course And Treament: 1317: Stable. She is pain controlled. Ambulated. AAOx3. Chronic back pain. Fu with pain management and pcp. Medical Decision Making Medical Decision Making: Initial Impression: * Lower back pain for 4 days. Initial Plan: * XRAY lumbar spine * Benadryl * Dilaudid * XRAY left hip Time: 11:30 11:30. Patient demanding Dilaudid with Benadryl for pain. Scribe Attestation Documented by Vince palm acting as a scribe for Jad Tejada MD. Provider Attestation: All medical record entries made by the Scribe were at my direction and personally dictated by me. I have reviewed the chart and agree that the record accurately reflects my personal performance of the history, physical exam, medical decision making, and the department course for this patient. I have also personally directed, reviewed, and agree with the discharge instructions and disposition. Disposition - Clinical Impression Clinical Impression: Low back pain - Patient ED Disposition Is Patient to be Admitted: No Counseled Patient/Family Regarding: Studies Performed, Diagnosis, Need For Followup - Disposition Referrals: Brenton Dorado MD [Primary Care Provider] - 02/20/17 Disposition: Routine/Home Disposition Time: 14:18 Condition: STABLE Additional Instructions: Return if not better in 3 days. Instructions: Acute Low Back Pain (ED)
[2017-02-19] MEDS ORDERED: DiphenhydrAMINE 50 mg/ml Inj ONE (12:10)
[2017-02-19] MEDS ORDERED: HYDROmorphone 0.5 mg/0.5 ml ISec ONE (12:11)
--- NOTE | 2017-02-19 12:28 | RAD ---
PROCEDURE: Left Hip with pelvis X-ray Radiographs. HISTORY: fall and pain COMPARISON: None. FINDINGS: BONES: The pelvic ring appears intact including the pubic symphysis. There is no suspicious lytic or blastic change identified. Iliac bones appear remarkable for degenerative changes at the sacroiliac joints symmetrically. The pubic bones are intact as well as the visualized upper and mid sacrum. The lower sacrum is obscured by overlying bowel. No fracture. JOINTS: Moderate degenerate change seen the bilaterals hit hip joints, appearing symmetric. SOFT TISSUES: Normal. OTHER FINDINGS: None. IMPRESSION: No acute fracture dislocation of the left hip joint with the pelvic ring remarkable only for bilateral sacroiliac and hip joint degenerative change which appears symmetric.
--- NOTE | 2017-02-19 12:31 | RAD ---
PROCEDURE: Radiographs of the Lumbar Spine. HISTORY: back pain COMPARISON: And pelvis CT examination 12/25/2016. FINDINGS: BONES: Normal alignment. No listhesis. No fracture. No spondylolysis. Limited multilevel spondylosis appreciated diffusely. No suspicious lytic or blastic change identified. DISC SPACES: Degenerate disc height loss seen at L4-5 and L3-4 minimally. Remaining intervertebral disc spaces are normal in height. OTHER FINDINGS: None. IMPRESSION: Mild multilevel lumbar spondylosis without fracture or spondylolisthesis appreciated. No spondylolysis either.
== END 2017-02-19 13:33 | disposition home or self-care (01) ==
LOC: H.ER 10:23 → SUPCPDRO 10:23 → H.ER 13:33
DX: M54.5 Low back pain (principal); W06.XXXA Fall from bed, initial encounter
CPT/HCPCS: 72114; 73502; 96372; 99282; J1170; J1200

== ENCOUNTER 2017-06-18 19:19 | Inpatient (IN) | payer BC ==
[2017-06-18 19:19] VITALS: BMI 35.2
[2017-06-18] MEDS ORDERED: DiphenhydrAMINE 50 mg/ml Inj IVP STA (20:06)
[2017-06-18] MEDS ORDERED: Labetalol 5 mg/ml Inj 20ML IVP STA ×2 (20:12)
--- NOTE | 2017-06-18 20:27 | ED PDOC ---
HPI: General Adult Time Seen by Provider: 06/18/17 19:45 Chief Complaint (Nursing): Chest Pain Chief Complaint (Provider): Chest Pain History Per: Patient History/Exam Limitations: no limitations Current Symptoms Are (Timing): Still Present Additional Complaint(s): 62 year old female presents to the emergency department with a complaint of a chest pain that initially began with a headache for about 1 week. Reports a gradual onset localized to the frontal region of the head radiating to the rest of the head. Associated with a nausea, and intermittent vomiting but is able to tolerate fluids by mouth. States over the course of the week she noticed blood pressure and glucose has been increasing despite taking her regular mediations. Today patient had some left sided chest pain with some paresthesias to the left hand, epigastric abdominal pain, and bilateral feet swelling which prompted her to come to the emergency room. Denies shortness of breath, runny nose, fever, or cough. PMD: Dr. Brenton Dorado MD Past Medical History Reviewed: Historical Data, Nursing Documentation, Vital Signs Vital Signs: Last Vital Signs Temp 98.5 F 06/21/17 08:00 Pulse 73 06/21/17 08:55 Resp 18 06/21/17 08:00 BP 144/82 06/21/17 08:55 Pulse Ox 98 06/21/17 08:00 - Medical History PMH: Anemia, Anxiety, Arthritis, Asthma, Back Problems, Bronchitis, COPD, Diabetes, Emphysema, Gastritis, Gall Bladder Disease, GERD, Graves' Disease, Hiatal Hernia, HTN, Hypercholesterolemia, Hyperlipidemia, Pneumonia, Sleep Apnea Denies: Alzheimer's Disease, Atrial Fibrillation, Bipolar Disorder, CAD, Cardia Arrhythmia, CHF, Crohn's Disease, Dementia (pt denies), Depression, Diverticulitis, Fractures, HIV, Hyperthyroidism, Hypothyroidism, Kidney Stones, Migraine, Mitral Valve Prolapse, Multiple Sclerosis, Osteoporosis, Pancreatitis , Paranoia, Parkinson's Disease, Peripheral Edema, Post Traumatic Stress Disorder, Pulmonary Embolism, Chronic Kidney Disease, Rheumatoid Arthritis, Schizophrenia, Seizures, Sickle Cell Disease, Sexually Transmitted Disease, TIA - Surgical History Surgical History: Cholecystectomy Denies: Appendectomy, CABG, Carotid Endarterectomy, Coronary Stent, Pacemaker , Tonsillectomy - Family History Family History: States: Unknown Family Hx, Diabetes (brother), Hypertension ( brother) - Living Arrangements Living Arrangements: With Family - Social History Current smoker - smoking cessation education provided: No Ex-Smoker (has not smoked in the last 12 months): No Alcohol: None Drugs: Denies - Immunization History Hx Tetanus Toxoid Vaccination: No Hx Influenza Vaccination: No Hx Pneumococcal Vaccination: No - Home Medications Home Medications: Ambulatory Orders Medication Instructions Recorded Enalapril Maleate 20 mg PO TID 05/18/15 Zolpidem [Ambien] 10 mg PO HS 05/18/15 Esomeprazole Magnesium [Nexium] 40 mg PO DAILY 06/28/15 HYDROmorphone [Dilaudid] 4 mg PO Q6 07/26/15 Insulin Lispro [Humalog] 30 unit SC BID 07/26/15 Metoclopramide [Reglan] 10 mg PO BID PRN 07/26/15 Hydroxyzine HCl 25 mg PO Q6 06/18/17 Aspirin [Aspirin Chewable] 81 mg PO DAILY #0 chew 06/20/17 Phosphorus/Potassium/Sodium 1 pkt PO DAILY #4 packet 06/20/17 [Neutra-Phos] amLODIPine [Norvasc] 5 mg PO DAILY #30 tab 06/20/17 - Allergies Allergies/Adverse Reactions: Allergies Allergy/AdvReac Type Severity Reaction Status Date / Time codeine Allergy ITCHING Verified 06/18/17 19:32 hydromorphone [From Dilaudid] Allergy ITCHING Verified 06/18/17 19:32 Review of Systems ROS Statement: Except As Marked, All Systems Reviewed And Found Negative (As per HPI, otherwise negative) Constitutional: Negative for: Fever ENT: Negative for: Nose Discharge Cardiovascular: Positive for: Chest Pain (left-sided) Respiratory: Negative for: Cough, Shortness of Breath Gastrointestinal: Positive for: Nausea, Vomiting, Abdominal Pain (Epigastric) Musculoskeletal: Positive for: Other (Bilateral feet swelling) Neurological: Positive for: Headache (Frontal that radiates to the rest of the head), Other (paresthesias to the left hand) Physical Exam - Reviewed Nursing Documentation Reviewed: Yes Vital Signs Reviewed: Yes - Physical Exam Appears: Positive for: Non-toxic, In Acute Distress Head Exam: Positive for: ATRAUMATIC, NORMOCEPHALIC Skin: Positive for: Warm, Dry Eye Exam: Positive for: EOMI, PERRL ENT: Positive for: Other (tacky mucus membranes). Negative for: Pharyngeal Erythema, Tonsillar Exudate Neck: Positive for: Painless ROM, Supple Cardiovascular/Chest: Positive for: Regular Rate, Rhythm, Chest Non Tender. Negative for: Murmur Respiratory: Positive for: Normal Breath Sounds. Negative for: Wheezing Gastrointestinal/Abdominal: Positive for: Soft, Tenderness (epigastric). Negative for: Mass, Distended, Guarding Back: Positive for: Normal Inspection. Negative for: L CVA Tenderness, R CVA Tenderness Extremity: Positive for: Normal ROM, Pedal Edema. 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 Negative for: Motor/Sensory Deficits - Laboratory Results Result Diagrams: 06/18/17 20:22 06/20/17 08:40 - ECG ECG Rhythm: Positive for: Sinus Rhythm (st 98 bpm), Nonspecific Changes. Negative for: ST/T Changes (No T wave inversions) O2 Sat by Pulse Oximetry: 99 (RA) Pulse Ox Interpretation: Normal Medical Decision Making Medical Decision Making: Time: 2001 Initial impression: Chest pain, headache and abdominal pain. Differential include but not limited to hypertensive encephalopathy, migraine headache, tension headache, electrolyte abnormalities, gastritis, pancreatitis, viral illness and acute coronary syndrome. Initial plan: --Labs and chemistry ordered --EKG --Benadryl 25 mg IVP --Trandate 10 mg IVP --Trandate 20 mg --Phenergan INJ 25 mg IV --Head CT --Chest x-ray --Reevaluation --Patient will be hospitalized pending ER work up due to cardiac risk factor. Time: 2123 --Head CT FINDINGS: Brain: Unremarkable. No hemorrhage. No significant white matter disease. No edema. Ventricles: Unremarkable. No ventriculomegaly. Bones/joints: Unremarkable. No acute fracture. Soft tissues: Unremarkable. Sinuses: Unremarkable as visualized. No acute sinusitis. Mastoid air cells: Unremarkable as visualized. No mastoid effusion. IMPRESSION: Normal head/brain CT. 2129 No emergently significant lab abnormalities Pt still having nausea and headache, but has not received promethazine yet. BP decreased. 2155 --Admit to hospital on observation in telemetry for chest pain and hypertensive urgency under the care of Dr. Don L Cerna MD Scribe Attestation: Documented by Sole Rivas, acting as a scribe for Adrianne Morse MD. Provider Scribe Attestation: All medical record entries made by the Scribe were at my direction and personally dictated by me. I have reviewed the chart and agree that the record accurately reflects my personal performance of the history, physical exam, medical decision making, and the department course for this patient. I have also personally directed, reviewed, and agree with the discharge instructions and disposition. Disposition - Clinical Impression Clinical Impression: Hypertensive urgency, malignant, Headache, Chest pain Discussed With Dr.: Don Cerna Doctor Will See Patient In The: Hospital Counseled Patient/Family Regarding: Studies Performed, Diagnosis - Disposition Disposition Time: 20:00 Condition: FAIR - Pt Status Changed To: Hospital Disposition Of: Observation - POA Present On Arrival: Poor Glycemic Control
[2017-06-18] MEDS ORDERED: Labetalol 5mg/ml (4ml) ONE (20:30)
[2017-06-18] MEDS ORDERED: DiphenhydrAMINE 12.5 mg/5 ml LIQ UD (5 ml) ONE (20:31)
[2017-06-18] MEDS ORDERED: DiphenhydrAMINE 50 mg/ml Inj ONE (20:33)
[2017-06-18 20:51] LABS: BASO # 0.1 K/uL (0.0-0.2); BASO % 0.9 % (0.0-2.0); EOS # 0.1 K/uL (0.0-0.7); EOS % 1.2 % (0.0-4.0); HEMOGLOBIN 14.4 g/dL (12.0-16.0); LYMPH % 29.4 % (20.0-40.0); MEAN CELL VOLUME 79.8 fl (81.0-99.0); MEAN CORPUSCULAR HGB CONC 32.6 g/dL (33.0-37.0); MEAN PLATELET VOLUME 9.9 fl (7.2-11.7); MONO # 0.7 K/uL (0.0-0.8); MONO % 6.9 % (0.0-10.0); NEUT # 6.3 K/uL (1.8-7.0); NEUT % 61.6 % (50.0-75.0); NRBC % 0.1 % (0.0-0.0); RBC 5.55 Mil/uL (3.80-5.20); RED CELL DISTRIBUTION WIDTH 12.9 % (11.5-14.5); WHITE BLOOD COUNT 10.2 K/uL (4.8-10.8)
[2017-06-18 21:01] LABS: PARTIAL THROMBOPLASTIN TIME 29.7 Seconds (25.6-37.1); PROTHROMBIN TIME 10.6 Seconds (9.8-13.1)
[2017-06-18 21:05] LABS: ALB/GLOB RATIO 1.4 (1.0-2.1); ALBUMIN 4.4 g/dL (3.5-5.0); ALT/SGPT 37 U/L (9-52); AST/SGOT 21 U/L (14-36); BLOOD UREA NITROGEN 13 mg/dl (7-17); CALCIUM 9.9 mg/dL (8.4-10.2); GFR AFRICAN-AMERICAN > 60; GFR NON-AFRICAN AMERICAN > 60; LIPASE 91 U/L (23-300); MAGNESIUM 1.5 MG/DL (1.6-2.3)
[2017-06-18 21:17] LABS: B-TYPE NATRIURETIC PEPTIDE 58.9 pg/ml (0-900)
[2017-06-18] MEDS ORDERED: Promethazine 25 MG in Sodium Chloride 0.9% 50 ML IVPB ONE (21:30)
[2017-06-19] MEDS ORDERED: DiphenhydrAMINE 50 mg/ml Inj IVP STA (00:03)
[2017-06-19] MEDS ORDERED: DiphenhydrAMINE 50 mg/ml Inj ONE (00:08)
[2017-06-19] MEDS ORDERED: Pneumococcal 23-Valent Vaccine IM ONE (06:00)
--- NOTE | 2017-06-19 08:44 | CP.PCM.HP ---
History of Present Illness - History of Present Illness History of Present Illness: 62 yr old F presented to the ED with complaint of chest pain x 1 day, located on the left with numbness radiating down left arm. PMHx includes IDDM type 2, HTN, COPD, emphysema, GERD, arthritis, chronic back pain and anxiety. Associated symptoms are epigastric pain, nausea and a few episodes of nonbilious /nonblody emesis. She also reports worsening headache for 1 week, diffuse over her scalp 10/10. She has been able to tolerate food and fluids. Patient also states her BP has been intermittently elevated despite taking her medications as prescribed. Denies SOB, palpitations, fevers, chills, dysuria, hematuria, cough, syncope or diarrhea. PMD: Dr. Dorado PMHx: multiple hospital admissions for chronic intermittent abdominal pain, IDDM type 2, HTN, COPD, emphysema, GERD, arthritis, chronic back pain and anxiety SurgHx: Cholecystectomy FMHx: brother with diabetes and HTN SocHx: denies smoking, Etoh or drugs, lives with family Medications: Enalapril 20 mg PO BID, Ambien 10mg PO QHS, Nexium 40mg PO QD, Dilaudid 4mg PO Q6 PRN pain, Hydroxyzine 25mg PO Q6, Insulin Lispro 30 units SC BID, Reglan 10mg PO BID, Allergies: codeine-itchiness Present on Admission - Present on Admission Any Indicators Present on Admission: No History of DVT/PE: No History of Uncontrolled Diabetes: Yes Urinary Catheter: No Decubitus Ulcer Present: No History Surgical Site Infection Following: None Past Patient History - Infectious Disease Hx of Infectious Diseases: None - Tetanus Immunizations Tetanus Immunization: Unknown - Past Medical History & Family History Past Medical History?: Yes - Past Social History Smoking Status: Never Smoked - CARDIAC Hx Cardiac Disorders: Yes (HTN) - PULMONARY Hx Asthma: Yes Hx Bronchitis: Yes Hx Chronic Obstructive Pulmonary Disease (COPD): Yes Hx Emphysema: Yes Hx Pneumonia: Yes Hx Pulmonary Embolism: No Hx Sleep Apnea: Yes - NEUROLOGICAL Hx Alzheimer's Disease: No Hx Dementia: No (pt denies) Hx Migraine: No Hx Multiple Sclerosis: No Hx Parkinson's Disease: No Hx Seizures: No Hx Transient Ischemic Attacks (TIA): No - HEENT Hx HEENT Problems: Yes - RENAL Hx Chronic Kidney Disease: No - ENDOCRINE/METABOLIC Hx Endocrine Disorders: Yes (DM) - HEMATOLOGICAL/ONCOLOGICAL Hx Anemia: Yes Hx Human Immunodeficiency Virus (HIV): No Hx Sickle Cell Disease: No - INTEGUMENTARY Hx Dermatological Problems: No - MUSCULOSKELETAL/RHEUMATOLOGICAL Hx Musculoskeletal Disorders: Yes (chronic back pain) Hx Falls: Yes - GASTROINTESTINAL Hx Crohn's Disease: No Hx Diverticulitis: No Hx Gall Bladder Disease: Yes Hx Gastritis: Yes Hx Pancreatitis: No - GENITOURINARY/GYNECOLOGICAL Hx Sexually Transmitted Disorders: No - PSYCHIATRIC Hx Anxiety: Yes Hx Bipolar Disorder: No Hx Depression: No Hx Paranoia: No Hx Post Traumatic Stress Disorder: No Hx Schizophrenia: No Hx Substance Use: No - SURGICAL HISTORY Hx Appendectomy: No Hx Carotid Endarterectomy: No Hx Cholecystectomy: Yes Hx Coronary Artery Bypass Graft: No Hx Coronary Stent: No Hx Tonsillectomy: No - ANESTHESIA Hx Anesthesia: Yes Hx Anesthesia Reactions: No Meds Allergies/Adverse Reactions: Allergies Allergy/AdvReac Type Severity Reaction Status Date / Time codeine Allergy ITCHING Verified 06/18/17 19:32 hydromorphone [From Dilaudid] Allergy ITCHING Verified 06/18/17 19:32 Results - Vital Signs Recent Vital Signs: Last Vital Signs Temp 98.4 F 06/19/17 08:16 Pulse 83 06/19/17 08:16 Resp 20 06/19/17 08:16 BP 146/82 06/19/17 08:16 Pulse Ox 97 06/19/17 08:16 - Labs Result Diagrams: 06/18/17 20:22 06/18/17 20:22 Labs: Laboratory Results - last 24 hr 06/18/17 06/18/17 06/18/17 19:49 20:22 20:22 WBC 10.2 RBC 5.55 H Hgb 14.4 Hct 44.3 MCV 79.8 L MCH 26.0 L MCHC 32.6 L RDW 12.9 Plt Count 208 MPV 9.9 Neut % (Auto) 61.6 Lymph % (Auto) 29.4 [facility] % (Auto) 6.9 Eos % (Auto) 1.2 Baso % (Auto) 0.9 Neut # 6.3 Lymph # 3.0 [facility] # 0.7 Eos # 0.1 Baso # 0.1 PT INR APTT Sodium 141 Potassium 3.7 Chloride 100 Carbon Dioxide 28 Anion Gap 17 BUN 13 Creatinine 0.5 L Est GFR ( Amer) > 60 Est GFR (Non-Af Amer) > 60 POC Glucose (mg/dL) 255 H Random Glucose 293 H Calcium 9.9 Phosphorus 2.4 L Magnesium 1.5 L Total Bilirubin 0.5 AST 21 ALT 37 Alkaline Phosphatase 144 H D Troponin I < 0.0120 NT-Pro-B Natriuret Pep 58.9 Total Protein 7.6 Albumin 4.4 Globulin 3.2 Albumin/Globulin Ratio 1.4 Lipase 91 Blood Type Antibody Screen BBK History Checked 06/18/17 06/18/17 06/19/17 20:22 20:22 05:47 WBC RBC Hgb Hct MCV MCH MCHC RDW Plt Count MPV Neut % (Auto) Lymph % (Auto) [facility] % (Auto) Eos % (Auto) Baso % (Auto) Neut # Lymph # [facility] # Eos # Baso # PT 10.6 INR 1.0 APTT 29.7 Sodium Potassium Chloride Carbon Dioxide Anion Gap BUN Creatinine Est GFR ( Amer) Est GFR (Non-Af Amer) POC Glucose (mg/dL) 232 H Random Glucose Calcium Phosphorus Magnesium Total Bilirubin AST ALT Alkaline Phosphatase Troponin I NT-Pro-B Natriuret Pep Total Protein Albumin Globulin Albumin/Globulin Ratio Lipase Blood Type B NEGATIVE Antibody Screen Negative BBK History Checked Patient has bt Assessment & Plan - Assessment and Plan (Free Text) Assessment: 62 yr old admitted for chest pain, uncontrolled HTN, abdominal pain, nausea and vomiting. 1. Chest pain -acute, resolved, likely secondary to GERD vs costochondritis vs anxiety -EKG normal sinus rhythm, troponin negative x 3, CXR borderline cardiomegaly, no active disease, Echo LVEF 65-70% -cardiology consult appreciated: will follow recommendations -admit to telemetry 2. Headache -acute on chronic -Head CT: no intracranial hemorrhage, mass effect or edema -neurologic exam benign 3. HTN -chronic, uncontrolled -continue home medications, add Norvasc 5mg PO QD -monitor BP 4. Abdominal pain -chronic, recurrent -CBC, CMP, liver enzymes wnl -worked up by GI on admission of 03/31/17: MRCP negative at that time, reported likely gastroparesis secondary to uncontrolled diabetes and opiate use : recommended decrease opiate use, control hyperglycemia -pantoprazole, sucralfate, reglan 5. IDDM Type 2 -chronic, uncontrolled -HbA1c 7.7 on 04/01/17 -f/u lipids -continue home meds -hypoglycemia protocol in place 6. DVT prophylaxis -Lovenox 40 mg SC QD - Date & Time Date: 06/19/17 Time: 10:00
--- NOTE | 2017-06-19 10:33 | CT ---
PROCEDURE: CT HEAD WITHOUT CONTRAST. HISTORY: headache hypertension COMPARISON: CT head 09/17/2015 TECHNIQUE: Axial computed tomography images were obtained through the head/brain without intravenous contrast. Radiation dose: Total exam DLP = mGy-cm. This CT exam was performed using one or more of the following dose reduction techniques: Automated exposure control, adjustment of the mA and/or kV according to patient size, and/or use of iterative reconstruction technique. FINDINGS: HEMORRHAGE: No intracranial hemorrhage. BRAIN: No mass effect or edema. No atrophy or chronic microvascular ischemic changes. A thin 1 x 5 mm interhemispheric benign-appearing incidental lipoma suggested overseas axis series 3, image 41 this is unchanged with prior axial series 3, image 39 VENTRICLES: Unremarkable. No hydrocephalus. CALVARIUM: Unremarkable. PARANASAL SINUSES: Sinusitis changes renoted. Currently confined to the ethmoid air cells. The prior asmall mucosal thickening and/or tiny fluid level in the left sphenoid air cell is no longer seen. The rightward convexity of the anterior nasal septum is similar encroachment on the right nasal airway passages -inferred. MASTOID AIR CELLS: Unremarkable as visualized. No inflammatory changes. OTHER FINDINGS: The previously referenced left paracentral small (approximately 13 mm) CSF like posterior fossa focus is stable. Previously a potential benign arachnoid cyst or epidermoid had been mentioned. This appearance is cyst stable appearing IMPRESSION: No interval intracranial pathology noted. Benign incidental findings -interhemispheric sub cm lipoma and probable left paracentral posterior small arachnoid cyst -both finding stable since 2016 Ethmoidal sinusitis and nasal septal deviation - sinusitis status renoted Comments: Preliminary V rad report noted. This reports correct/adds to that report: Ethmoidal sinusitis present
--- NOTE | 2017-06-19 10:53 | RAD ---
HISTORY: chest pain COMPARISON: 10/04/2015 FINDINGS: LUNGS: No consolidation PLEURA: No significant pleural effusion identified, no pneumothorax apparent. CARDIOVASCULAR: Borderline cardiomegaly. Minimal central pulmonary venous congestion suspect -an interval change OSSEOUS STRUCTURES: Thoracic spondylosis VISUALIZED UPPER ABDOMEN: Normal. OTHER FINDINGS: None. IMPRESSION: Borderline cardiomegaly with interval minimal central pulmonary venous congestion suspect.
--- NOTE | 2017-06-19 10:57 | CARD ---
APPROVED REPORT EKG Measurement Heart [id number] <Conclusion> Normal sinus rhythm Possible Inferior infarct, age undetermined Abnormal ECG
--- NOTE | 2017-06-19 12:07 | CP.PCM.CON ---
History of Present Illness - History of Present Illness History of Present Illness: pt with severe PRUETT at home, thereafter began have chest tightness with Left hand numbness at rest. checked bp and noted it was severely elevated, which bought them to er. she co baseline ferro. yesterday had dyspnea during episodes. her chest discomfort wax and waned for 45 min. doesnt recall if she3 had prior episodes. Her main complaint currently is PRUETT. Past Patient History - Infectious Disease Hx of Infectious Diseases: None - Tetanus Immunizations Tetanus Immunization: Unknown - Past Medical History & Family History Past Medical History?: Yes - Past Social History Smoking Status: Never Smoked - CARDIAC Hx Cardiac Disorders: Yes (HTN) - PULMONARY Hx Asthma: Yes Hx Bronchitis: Yes Hx Chronic Obstructive Pulmonary Disease (COPD): Yes Hx Emphysema: Yes Hx Pneumonia: Yes Hx Pulmonary Embolism: No Hx Sleep Apnea: Yes - NEUROLOGICAL Hx Alzheimer's Disease: No Hx Dementia: No (pt denies) Hx Migraine: No Hx Multiple Sclerosis: No Hx Parkinson's Disease: No Hx Seizures: No Hx Transient Ischemic Attacks (TIA): No - HEENT Hx HEENT Problems: Yes - RENAL Hx Chronic Kidney Disease: No - ENDOCRINE/METABOLIC Hx Endocrine Disorders: Yes (DM) - HEMATOLOGICAL/ONCOLOGICAL Hx Anemia: Yes Hx Human Immunodeficiency Virus (HIV): No Hx Sickle Cell Disease: No - INTEGUMENTARY Hx Dermatological Problems: No - MUSCULOSKELETAL/RHEUMATOLOGICAL Hx Musculoskeletal Disorders: Yes (chronic back pain) Hx Falls: Yes - GASTROINTESTINAL Hx Crohn's Disease: No Hx Diverticulitis: No Hx Gall Bladder Disease: Yes Hx Gastritis: Yes Hx Pancreatitis: No - GENITOURINARY/GYNECOLOGICAL Hx Sexually Transmitted Disorders: No - PSYCHIATRIC Hx Anxiety: Yes Hx Bipolar Disorder: No Hx Depression: No Hx Paranoia: No Hx Post Traumatic Stress Disorder: No Hx Schizophrenia: No Hx Substance Use: No - SURGICAL HISTORY Hx Appendectomy: No Hx Carotid Endarterectomy: No Hx Cholecystectomy: Yes Hx Coronary Artery Bypass Graft: No Hx Coronary Stent: No Hx Tonsillectomy: No - ANESTHESIA Hx Anesthesia: Yes Hx Anesthesia Reactions: No Meds Allergies/Adverse Reactions: Allergies Allergy/AdvReac Type Severity Reaction Status Date / Time codeine Allergy ITCHING Verified 06/18/17 19:32 hydromorphone [From Dilaudid] Allergy ITCHING Verified 06/18/17 19:32 - Medications Medications: Current Medications Acetaminophen (Tylenol 325mg Tab) 650 mg PO Q6 PRN PRN Reason: Headache Last Admin: 06/19/17 02:38 Dose: 650 mg Acetaminophen (Tylenol 325mg Tab) 650 mg PO Q4 PRN PRN Reason: Pain, Mild (1-3) Aspirin (Aspirin Chewable) 81 mg PO DAILY [facility] Last Admin: 06/19/17 08:52 Dose: 81 mg Enalapril Maleate (Vasotec) 20 mg PO BID [facility] Enoxaparin Sodium (Lovenox) 40 mg SC DAILY [facility] PRN Reason: Protocol Metoprolol Tartrate (Lopressor) 50 mg PO Q12 [facility] Last Admin: 06/19/17 08:52 Dose: 50 mg Tramadol HCl (Ultram) 50 mg PO BID PRN PRN Reason: Other Last Admin: 06/19/17 06:38 Dose: 50 mg Results - Vital Signs Recent Vital Signs: Last Vital Signs Temp 97.7 F 06/19/17 12:00 Pulse 76 06/19/17 12:00 Resp 18 06/19/17 12:00 BP 161/82 H 06/19/17 12:00 Pulse Ox 96 06/19/17 12:00 - Labs Result Diagrams: 06/18/17 20:22 06/18/17 20:22 Labs: Laboratory Results - last 24 hr 06/18/17 06/18/17 06/18/17 19:49 20:22 20:22 WBC 10.2 RBC 5.55 H Hgb 14.4 Hct 44.3 MCV 79.8 L MCH 26.0 L MCHC 32.6 L RDW 12.9 Plt Count 208 MPV 9.9 Neut % (Auto) 61.6 Lymph % (Auto) 29.4 [place] % (Auto) 6.9 Eos % (Auto) 1.2 Baso % (Auto) 0.9 Neut # 6.3 Lymph # 3.0 [place] # 0.7 Eos # 0.1 Baso # 0.1 PT INR APTT Sodium 141 Potassium 3.7 Chloride 100 Carbon Dioxide 28 Anion Gap 17 BUN 13 Creatinine 0.5 L Est GFR ( Amer) > 60 Est GFR (Non-Af Amer) > 60 POC Glucose (mg/dL) 255 H Random Glucose 293 H Calcium 9.9 Phosphorus 2.4 L Magnesium 1.5 L Total Bilirubin 0.5 AST 21 ALT 37 Alkaline Phosphatase 144 H D Troponin I < 0.0120 NT-Pro-B Natriuret Pep 58.9 Total Protein 7.6 Albumin 4.4 Globulin 3.2 Albumin/Globulin Ratio 1.4 Lipase 91 Blood Type Antibody Screen BBK History Checked 06/18/17 06/18/17 06/19/17 20:22 20:22 05:47 WBC RBC Hgb Hct MCV MCH MCHC RDW Plt Count MPV Neut % (Auto) Lymph % (Auto) [place] % (Auto) Eos % (Auto) Baso % (Auto) Neut # Lymph # [place] # Eos # Baso # PT 10.6 INR 1.0 APTT 29.7 Sodium Potassium Chloride Carbon Dioxide Anion Gap BUN Creatinine Est GFR ( Amer) Est GFR (Non-Af Amer) POC Glucose (mg/dL) 232 H Random Glucose Calcium Phosphorus Magnesium Total Bilirubin AST ALT Alkaline Phosphatase Troponin I NT-Pro-B Natriuret Pep Total Protein Albumin Globulin Albumin/Globulin Ratio Lipase Blood Type B NEGATIVE Antibody Screen Negative BBK History Checked Patient has bt 06/19/17 06/19/17 08:35 11:18 WBC RBC Hgb Hct MCV MCH MCHC RDW Plt Count MPV Neut % (Auto) Lymph % (Auto) [place] % (Auto) Eos % (Auto) Baso % (Auto) Neut # Lymph # [place] # Eos # Baso # PT INR APTT Sodium Potassium Chloride Carbon Dioxide Anion Gap BUN Creatinine Est GFR ( Amer) Est GFR (Non-Af Amer) POC Glucose (mg/dL) 260 H Random Glucose Calcium Phosphorus Magnesium Total Bilirubin AST ALT Alkaline Phosphatase Troponin I < 0.0120 NT-Pro-B Natriuret Pep Total Protein Albumin Globulin Albumin/Globulin Ratio Lipase Blood Type Antibody Screen BBK History Checked Assessment & Plan (1) Chest pain Status: Acute (2) Hypertensive urgency, malignant Status: Acute Priority: High (3) Headache above the eye region Status: Acute (4) Diabetes Status: Chronic (5) Essential (primary) hypertension Status: Chronic - Assessment and Plan (Free Text) Plan: PTS CP MAY HAVE BEEN SECONDARY TO HYPERTENSIVE URGENCY. SHE HAS RULED OUT, EKG IS NORMAL, ECHO SHOWS NORMAL EF. SHE DOES HAVE A STRONG FAM HX OF CAD, HAS DM AND HTN. LAST ST WAS 5 YEARS AGO AND NEGATIVE. WOULD INCREASE HER ACEI DOSE , TREAT HER PRUETT, GI EVAL, AND WOULD HAVE PT UNDERGO ST ONCE STABLE SYMPTOM WU. CONT TELE, REPLEAT MAG, MON CR, CHECK HBA1C.
[2017-06-19] MEDS ORDERED: Magnesium Sulfate 2 gm/50 ml 2 GM/50 ML BAG IVPB ONE (12:26)
[2017-06-19] MEDS ORDERED: Sodium Chloride 0.9% 1,000 ML IV SCH (13:00)
[2017-06-19] MEDS: Enoxaparin 40 mg Syringe SC SCH (13:00)
--- NOTE | 2017-06-19 13:33 | CARD ---
APPROVED REPORT EXAM: Two-dimensional and M-mode echocardiogram with Doppler and color Doppler. Other Information Quality : FairRhythm : INDICATION Chest Pain 2D DIMENSIONS IVSd1.28 (0.7-1.1cm)LVDd4.29 (3.9-5.9cm) PWd1.53 (0.7-1.1cm)IVSs1.31 (0.8-1.2cm) LVDs3.25 (2.5-4.0cm)FS (%) 24.4 % PWs1.62 (0.8-1.2cm)LVEF (%)48.0 (>50%) M-Mode DIMENSIONS Left Atrium (MM)3.44 (2.5-4.0cm)Aortic Root2.53 (2.2-3.7cm) Aortic Cusp Exc.1.44 (1.5-2.0cm) Mitral Valve MV E Yplojhvl43.8cm/sMV DECEL [id number] A Ezifjawb22.9cm/s MV LDJ02bqX/A ratio0.9MVA (PHT)3.45cm2 TDI Lateral E' Peak V6.03cm/sE/Lateral E'12.9E/Medial E'0.0 Tricuspid Valve TR Peak Atqswuga883hy/sRAP [id number] Peak Gr.15mmHg [id number] LEFT VENTRICLE The left ventricle is normal in size. There is normal left ventricular wall thickness. The left ventricular function is normal. The left ventricular ejection fraction is - 65-70%. There is normal LV segmental wall motion. Transmitral Doppler flow pattern is Grade I-abnormal relaxation pattern. No left ventricle thrombus noted on this study. There is no ventricular septal defect visualized. There is no left ventricular aneurysm. There is no mass noted in the left ventricle. RIGHT VENTRICLE The right ventricle is normal size. There is normal right ventricular wall thickness. The right ventricular systolic function is normal. ATRIA The left atrium size is normal. There is no thrombus suspected in the left atrium. The right atrium size is normal. The interatrial septum is intact with no evidence for an atrial septal defect. AORTIC VALVE The aortic valve is normal in structure. No aortic regurgitation is present. There is no aortic valvular stenosis. MITRAL VALVE The mitral valve is normal in structure. There is no evidence of mitral valve prolapse. There is no mitral valve stenosis. There is no mitral valve regurgitation noted. TRICUSPID VALVE The tricuspid valve is normal in structure. There is trace to mild tricuspid regurgitation. Right ventricular systolic pressure is estimated at 24 mmHg. There is no tricuspid valve prolapse or vegetation. There is no tricuspid valve stenosis. PULMONIC VALVE The pulmonic valve is not well visualized. There is no pulmonic valvular regurgitation. GREAT VESSELS The aortic root is normal in size. The IVC was not visualized. PERICARDIAL EFFUSION There is a small anterior echo free space. There is no pleural effusion. <Conclusion> The left ventricle is normal in size and wall thickness. The left ventricular function is normal. The left ventricular ejection fraction is - 65-70%. The left atrium, right ventricle and right atrium are normal in size. The mitral, aortic and tricuspid valves are normal. There is trace to mild tricuspid regurgitation.
[2017-06-19] MEDS: Sodium Chloride 0.9% 1,000 ML IV SCH (13:45)
[2017-06-19] MEDS: Apap-Butalbital-Caffeine 325-50-40mg Tab PO PRN (14:45)
[2017-06-19] MEDS: Sucralfate 1 gm/10 ml Oral Susp UD PO SCH (16:07)
[2017-06-20] MEDS: Sodium Chloride 0.9% 1,000 ML IV SCH ×2 (01:29→09:34)
[2017-06-20] MEDS: Apap-Butalbital-Caffeine 325-50-40mg Tab PO PRN ×2 (03:48→20:16)
[2017-06-20 06:20] LABS: HDL CHOLESTEROL 21 MG/DL (30-70)
[2017-06-20 06:31] LABS: LDL CHOLESTEROL 81 mg/dL (0-129)
[2017-06-20 09:16] LABS: BLOOD UREA NITROGEN 9 mg/dl (7-17); CALCIUM 9.8 mg/dL (8.4-10.2); GFR AFRICAN-AMERICAN > 60; GFR NON-AFRICAN AMERICAN > 60; MAGNESIUM 1.8 MG/DL (1.6-2.3)
[2017-06-20] MEDS: Sucralfate 1 gm/10 ml Oral Susp UD PO SCH ×2 (09:16→18:54)
[2017-06-20] MEDS: Enoxaparin 40 mg Syringe SC SCH (09:20)
[2017-06-20] MEDS: Potassium & Sodium Phosphate PO SCH (13:45)
--- NOTE | 2017-06-20 14:12 | CP.PCM.PCO ---
Assessment/Plan - Assessment/Plan Assessment (Free Text): Pt seen this am, stable in no distress. Patient denies cp, sob, f/c/n/v or headache. Pt states she feels much better today and wants to go home. States she has an appointment with her doctor tomorrow. Discussed with enterprise resource planner, Dr. Soraida Daniel who states pt needs a stress test. Pt made aware and discharge held pending eval from Dr. Quigley.
--- NOTE | 2017-06-20 16:06 | CP.PCM.PN ---
Subjective - Date & Time of Evaluation Date of Evaluation: 06/20/17 Time of Evaluation: 10:08 - Subjective Subjective: Patient seen and examined at bedside with attending-Dr. Cerna. Denies chest pain, SOB, weakness, abdominal pain or headache. Patient is aware she may need more tests as per cardiology due to her risk factors and recurrent intermittent chest pain. Objective - Vital Signs/Intake and Output Vital Signs (last 24 hours): Temp Pulse Resp BP Pulse Ox 97.3 F L 72 20 143/85 99 06/20/17 12:30 06/20/17 12:50 06/20/17 12:30 06/20/17 13:51 06/20/17 12:30 - Medications Medications: Current Medications Acetaminophen (Tylenol 325mg Tab) 650 mg PO Q6 PRN PRN Reason: Headache Last Admin: 06/19/17 02:38 Dose: 650 mg Acetaminophen (Tylenol 325mg Tab) 650 mg PO Q4 PRN PRN Reason: Pain, Mild (1-3) Acetaminophen/Butalbital/Caffeine (Fioricet) 1 tab PO Q4 PRN PRN Reason: Headache Last Admin: 06/20/17 03:48 Dose: 1 tab Amlodipine Besylate (Norvasc) 5 mg PO DAILY [facility] Last Admin: 06/20/17 09:21 Dose: 5 mg Aspirin (Aspirin Chewable) 81 mg PO DAILY [facility] Last Admin: 06/20/17 09:21 Dose: 81 mg Enalapril Maleate (Vasotec) 20 mg PO BID [facility] Last Admin: 06/20/17 09:21 Dose: 20 mg Enoxaparin Sodium (Lovenox) 40 mg SC DAILY [facility] PRN Reason: Protocol Last Admin: 06/20/17 09:20 Dose: 40 mg Metoclopramide HCl (Reglan) 5 mg IVP Q8 [facility] Last Admin: 06/20/17 09:32 Dose: 5 mg Metoprolol Tartrate (Lopressor) 50 mg PO Q12 [facility] Last Admin: 06/20/17 09:20 Dose: 50 mg Pantoprazole Sodium (Protonix Inj) 40 mg IVP DAILY [facility] Last Admin: 06/20/17 09:19 Dose: 40 mg Potassium Phos/Sodium Phos (Neutra-Phos) 1 pkt PO DAILY [facility] Last Admin: 06/20/17 13:45 Dose: 1 pkt Sucralfate (Carafate Oral Susp) 1 gm PO BID [facility] Last Admin: 06/20/17 09:16 Dose: 1 gm Tramadol HCl (Ultram) 50 mg PO BID PRN PRN Reason: Other Last Admin: 06/19/17 06:38 Dose: 50 mg - Labs Labs: 06/18/17 20:22 06/20/17 08:40 PT 10.6 Seconds (9.8-13.1) 06/18/17 20:22 INR 1.0 (0.9-1.2) 06/18/17 20:22 APTT 29.7 Seconds (25.6-37.1) 06/18/17 20:22 - Head Exam Head Exam: ATRAUMATIC, NORMOCEPHALIC - Eye Exam Eye Exam: EOMI - ENT Exam ENT Exam: Mucous Membranes Moist - Neck Exam Neck Exam: Full ROM - Respiratory Exam Respiratory Exam: NORMAL BREATHING PATTERN - Cardiovascular Exam Cardiovascular Exam: REGULAR RHYTHM, +S1, +S2 - GI/Abdominal Exam GI & Abdominal Exam: Soft (obese), Normal Bowel Sounds - Extremities Exam Extremities Exam: Full ROM - Neurological Exam Neurological Exam: Alert, Awake, CN II-XII Intact, Oriented x3 - Psychiatric Exam Psychiatric exam: Normal Affect, Normal Mood - Skin Skin Exam: Dry, Warm Assessment and Plan - Assessment and Plan (Free Text) Assessment: 62 yr old admitted for chest pain, uncontrolled HTN, abdominal pain, nausea and vomiting. 1. Chest pain -acute, resolved, likely secondary to GERD vs costochondritis vs anxiety -EKG normal sinus rhythm, troponin negative x 3, CXR borderline cardiomegaly, no active disease, Echo LVEF 65-70% -cardiology consult appreciated: will follow recommendations: stress test once stable symptom kimble -continue current management 2. Headache -acute on chronic, resolved -Head CT: no intracranial hemorrhage, mass effect or edema -neurologic exam benign 3. HTN -chronic, uncontrolled -continue home medications, added Norvasc 5 mg PO QD -monitor BP 4. Abdominal pain -chronic, recurrent, resolved -CBC, CMP, liver enzymes wnl -worked up by GI on admission of 03/31/17: MRCP negative at that time, reported likely gastroparesis secondary to uncontrolled diabetes and opiate use : recommended decrease opiate use, control hyperglycemia -pantoprazole, sucralfate, reglan 5. IDDM Type 2 -chronic, uncontrolled -HbA1c 7.7 on 04/01/17 -f/u lipids -continue home meds -hypoglycemia protocol in place 6. DVT prophylaxis -Lovenox 40 mg SC QD
[2017-06-21 00:40] VITALS: RESP 18
--- NOTE | 2017-06-21 07:08 | CP.PCM.DIS ---
Provider - Provider Date of Admission: 06/20/17 15:56 Attending physician: Don Cerna MD Hospital Course - Lab Results Lab Results: Most Recent Lab Values WBC 10.2 K/uL (4.8-10.8) 06/18/17 20: RBC 5.55 Mil/uL (3.80-5.20) H 06/18/17 20:22 Hgb 14.4 g/dL (12.0-16.0) 06/18/17 20: Hct 44.3 % (34.0-47.0) 06/18/17 20: MCV 79.8 fl (81.0-99.0) L 06/18/17: MCH 26.0 pg (27.0-31.0) L 06/18/17: MCHC 32.6 g/dL (33.0-37.0) L 06/18/17: RDW 12.9 % (11.5-14.5) 06/18/17: Plt Count 208 K/uL (130-400) 06/18/17 20: MPV 9.9 fl (7.2-11.7) 06/18/17 20: Neut % (Auto) 61.6 % (50.0-75.0) 06/18/17: Lymph % (Auto) 29.4 % (20.0-40.0) 06/18/17: Hardee % (Auto) 6.9 % (0.0-10.0) 06/18/17: Eos % (Auto) 1.2 % (0.0-4.0) 06/18/17: Baso % (Auto) 0.9 % (0.0-2.0) 06/18/17: Neut # 6.3 K/uL (1.8-7.0) 06/18/17: Lymph # 3.0 K/uL (1.0-4.3) 06/18/17 20: Hardee # 0.7 K/uL (0.0-0.8) 06/18/17 20: Eos # 0.1 K/uL (0.0-0.7) 06/18/17:22 Baso # 0.1 K/uL (0.0-0.2) 06/18/17 20:22 PT 10.6 Seconds (9.8-13.1) 06/18/17 20:22 INR 1.0 (0.9-1.2) 06/18/17 20:22 APTT 29.7 Seconds (25.6-37.1) 06/18/17 20:22 Sodium 140 mmol/l (132-148) 06/20/17 08:40 Potassium 3.7 MMOL/L (3.6-5.0) 06/20/17 08:40 Chloride 104 mmol/L (98-107) 06/20/17 08:40 Carbon Dioxide 25 mmol/L (22-30) 06/20/17 08:40 Anion Gap 15 (10-20) 06/20/17 08:40 BUN 9 mg/dl (7-17) 06/20/17 08:40 Creatinine 0.5 mg/dl (0.7-1.2) L 06/20/17 08:40 Est GFR ( Amer) > 60 06/20/17 08:40 Est GFR (Non-Af Amer) > 60 06/20/17 08:40 POC Glucose (mg/dL) 328 mg/dL (65-110) H 06/21/17 06:44 Random Glucose 305 mg/dL (65-105) H 06/20/17 08:40 Calcium 9.8 mg/dL (8.4-10.2) 06/20/17 08:40 Phosphorus 2.1 mg/dl (2.5-4.5) L 06/20/17 08:40 Magnesium 1.8 MG/DL (1.6-2.3) 06/20/17 08:40 Total Bilirubin 0.5 mg/dl (0.2-1.3) 06/18/17 20:22 AST 21 U/L (14-36) 06/18/17 20:22 ALT 37 U/L (9-52) 06/18/17 20:22 Alkaline Phosphatase 144 U/L (38-126) H D 06/18/17 20:22 Troponin I < 0.0120 ng/mL (0.00-0.120) 06/19/17 14:37 NT-Pro-B Natriuret Pep 58.9 pg/ml (0-900) 06/18/17 20:22 Total Protein 7.6 G/DL (6.3-8.2) 06/18/17 20:22 Albumin 4.4 g/dL (3.5-5.0) 06/18/17 20:22 Globulin 3.2 gm/dL (2.2-3.9) 06/18/17 20:22 Albumin/Globulin Ratio 1.4 (1.0-2.1) 06/18/17 20:22 Triglycerides 514 mg/DL (0-149) H D 06/20/17 05:00 Cholesterol 164 mg/dL (0-199) 06/20/17 05:00 LDL Cholesterol Direct 81 mg/dL (0-129) 06/20/17 05:00 HDL Cholesterol 21 MG/DL (30-70) L 06/20/17 05:00 Lipase 91 U/L (23-300) 06/18/17 20:22 Blood Type B NEGATIVE 06/18/17 20:22 Antibody Screen Negative 06/18/17 20:22 BBK History Checked Patient has bt 06/18/17 20:22 Discharge Exam - Head Exam Head Exam: ATRAUMATIC, NORMOCEPHALIC Discharge Plan - Discharge Medications Prescriptions: amLODIPine [Norvasc] 5 mg PO DAILY #30 tab Phosphorus/Potassium/Sodium [Neutra-Phos] 1 pkt PO DAILY #4 packet - Follow Up Plan Condition: FAIR Disposition: HOME/ ROUTINE Instructions: Chest Pain (DC), Chronic Hypertension (DC) Additional Instructions: 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
[2017-06-21 08:35] VITALS: BP 144/82; PULSE 73; TEMP 98.5
--- NOTE | 2017-06-21 08:41 | PQF GENQUE ---
Dr. Cerna, Etiology of Chest Pain? ; if known after the work up is completed OR: Unable to determine H and P: Chest pain -acute, resolved, likely secondary to GERD vs costochondritis vs anxiety -EKG normal sinus rhythm, troponin negative x 3, CXR borderline cardiomegaly, no active disease, Echo LVEF 65-70% -cardiology consult appreciated: will follow recommendations -admit to telemetry Cardiology consult:(1) Chest pain Status: Acute (2) Hypertensive urgency, malignant Status: Acute Priority: High (3) Headache above the eye region Status: Acute PTS CP MAY HAVE BEEN SECONDARY TO HYPERTENSIVE URGENCY. SHE HAS RULED OUT, EKG IS NORMAL, ECHO SHOWS NORMAL EF. SHE DOES HAVE A STRONG FAM HX OF CAD, HAS DM AND HTN. LAST ST WAS 5 YEARS AGO AND NEGATIVE. WOULD INCREASE HER ACEI DOSE, TREAT HER PRUETT, GI EVAL, AND WOULD HAVE PT UNDERGO ST ONCE STABLE SYMPTOM WU. CONT TELE, REPLEAT MAG, MON CR, CHECK HBA1C This form is a permanent part of the medical record Clarification of your documentation is requested to better reflect the severity of illness and intensity of treatment of your patient. Indicators present [] Specify: [] [] Specify: [] [] Specify: [] [] Specify: [] Location in the medical record that reflects the above clinical findings: [] Treatment Provided: [] PHYSICIAN'S RESPONSE Based on your medical judgment of the clinical indicators outlined above please clarify the following: [] Practitioner response [] If unable to determine, please check the box, sign and date. Present On Admission (POA) Indicator: [] Present at the time of admission [] Not present at the time of admission [] Clinically Undetermined In responding to this query, please exercise your independent professional judgment. The fact that a question is asked does not imply that any particular answer is desired or expected. Thank you for your clarification on this documentation. If you have any questions please call. * Thank you, Itzel Taylor RN ext. #[phone] MTDD
[2017-06-21] MEDS: Sucralfate 1 gm/10 ml Oral Susp UD PO SCH (08:54)
[2017-06-21] MEDS: Enoxaparin 40 mg Syringe SC SCH (08:54)
[2017-06-21] MEDS: Potassium & Sodium Phosphate PO SCH (08:55)
[2017-06-21 15:42] VITALS: O2SAT 99
== END 2017-06-21 09:40 | disposition left against medical advice (07) | DRG 305 ==
LOC: H.ER 19:19 → H.ERHOLD 21:56 → H.TEL 06-19 00:36 → OBSVTOIN 06-20 15:56
PROVIDERS: ADMIT Family Medicine; ATTEND Family Medicine
PROC: 3E0234Z Introduction of Serum, Toxoid and Vaccine into Muscle, Percutaneous Approach (ICD-10-PCS; principal; 2017-06-20)
DX: I16.0 Hypertensive urgency (principal); K31.84 Gastroparesis; E11.65 Type 2 diabetes mellitus with hyperglycemia; E11.43 Type 2 diabetes mellitus with diabetic autonomic (poly)neuropathy; Z79.4 Long term (current) use of insulin; Z88.6 Allergy status to analgesic agent; Z88.5 Allergy status to narcotic agent; Z23 Encounter for immunization; J43.9 Emphysema, unspecified; E78.5 Hyperlipidemia, unspecified; J45.909 Unspecified asthma, uncomplicated; F41.9 Anxiety disorder, unspecified; K29.70 Gastritis, unspecified, without bleeding; K21.9 Gastro-esophageal reflux disease without esophagitis; E78.00 Pure hypercholesterolemia, unspecified; G47.30 Sleep apnea, unspecified; K44.9 Diaphragmatic hernia without obstruction or gangrene; E05.00 Thyrotoxicosis with diffuse goiter without thyrotoxic crisis or storm